=== PATIENT | male | born 1990 | race Caucasian/White ===

== ENCOUNTER 2018-09-16 13:24 | Emergency (ER) | payer OTHER, SELFPAY ==
[~2018-09-16] VITALS: Ht 172.7 cm; Wt 68.2 kg
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
[2018-09-16 15:45] VITALS: BP 116/61
== END 2018-09-16 15:54 | disposition home or self-care (01) ==
LOC: M ED 13:24
DX: R51 Headache (principal)